=== PATIENT | male | born 1990 | race Caucasian/White ===

== ENCOUNTER 2022-10-15 19:58 | Emergency (ER) | payer OTHER ==
[2022-10-15 20:12] VITALS: BP 162/88; PULSE 115; RESP 20; TEMP 98.3
[2022-10-15] MEDS ORDERED: SODIUM CHLORIDE 0.9% 1,000 ML IV STA (20:23)
[2022-10-15] MEDS ORDERED: LORazepam 2 MG/ML INJ IV STA (20:30)
--- NOTE | 2022-10-15 20:33 | ED ---
Dizziness HPI - General Chief Complaint: Dizziness Stated Complaint: Dizziness Time Seen by Provider: 10/15/22 20:15 Source: patient Mode of arrival: ambulatory Limitations: no limitations - History of Present Illness Initial Comments: Patient is a 31-year-old male presenting with chief complaint of near syncopal episode. Patient states that he was upstairs visiting his twins in the nursery began to feel very dizzy, his states that he became very pale and had to rest against a window. Symptoms lasted for about a minute or 2. No chest pain or difficulty breathing. No vomiting or abdominal pain. No headache or vision or hearing changes. No fevers or chills. No palpitations or weakness. At this time patient is asymptomatic. - Related Data Home Medications Medication Instructions Recorded Confirmed Calcium Carbonate [Tums] 1,000 mg PO TID PRN 10/15/22 10/15/22 Allergies Allergy/AdvReac Type Severity Reaction Status Date / Time No Known Allergies Allergy Verified 10/15/22 21:12 Review of Systems ROS Statement: Those systems with pertinent positive or pertinent negative responses have been documented in the HPI. ROS Other: All systems not noted in ROS Statement are negative. Past Medical History Past Medical History: No Reported History, GERD/Reflux History of Any Multi-Drug Resistant Organisms: None Reported Additional Past Surgical History / Comment(s): spinal transfusion Past Psychological History: No Psychological Hx Reported Smoking Status: Never smoker Past Alcohol Use History: Occasional Past Drug Use History: None Reported General Exam Limitations: no limitations General appearance: alert, in no apparent distress Head exam: Present: atraumatic, normocephalic, normal inspection Eye exam: Present: normal appearance, EOMI. Absent: periorbital swelling, periorbital tenderness Neck exam: Present: normal inspection, full ROM Respiratory exam: Present: normal lung sounds bilaterally. Absent: respiratory distress, wheezes, rales, rhonchi, stridor Cardiovascular Exam: Present: regular rate, normal rhythm, normal heart sounds. Absent: systolic murmur, diastolic murmur, rubs, gallop, clicks Neurological exam: Present: alert, oriented X3, CN II-XII intact Expanded Patient oriented to: Present: person, place, time Speech: Present: fluid speech Eye Response: (4) open spontaneously Motor Response: (6) obeys commands Verbal Response: (5) oriented [place] Total: 15 Psychiatric exam: Present: normal affect, normal mood Skin exam: Present: warm, dry, intact, normal color. Absent: rash Course Vital Signs 10/15/22 20:06 Temperature 98.3 F Pulse Rate 115 H Respiratory 20 Rate Blood Pressure 162/88 O2 Sat by Pulse 99 Oximetry EKG Findings - EKG Comments: EKG Findings:: Sinus tachycardia ventricular rate 109. NE interval 135. QRS 113. QT 326. QTC 390. Medical Decision Making - Medical Decision Making Was pt. sent in by a medical professional or institution (, PA, [facility]MH SPECIALIST, urgent care, hospital, or penitentiary...) When possible be specific @ -No Did you speak to anyone other than the patient for history (EMS, parent, family, police, friend...)? What history was obtained from this source @ - Did you review nursing and triage notes (agree or disagree)? Why? @ -I reviewed and agree with nursing and triage notes Were old charts reviewed (outside hosp., previous admission, EMS record, old EKG, old radiological studies, urgent care reports/EKG's, penitentiary records)? Report findings @ -No old charts were reviewed Differential Diagnosis (chest pain, altered mental status, abdominal pain women, abdominal pain men, vaginal bleeding, weakness, fever, dyspnea, syncope, headache, dizziness, GI bleed, back pain, seizure, CVA, palpatations, mental health, musculoskeletal)? @ -MDM Differential Syncope: Valvular disease, hypertrophic cardiomyopathy, pulmonary embolism, tamponade, tachycardia, bradycardia, DE, hypovolemia, hemorrhage, dissection, anemia, intracranial hemorrhage, seizure, hypoglycemia, carbon monoxide poisoning this is not meant to be an all-inclusive list. EKG interpreted by me (3pts min.). @ -As above X-rays interpreted by me (1pt min.). @ -Chest x-ray shows no acute process CT interpreted by me (1pt min.). @ -None done U/S interpreted by me (1pt. min.). @ -None done What testing was considered but not performed or refused? (CT, X-rays, U/S, labs)? Why? @ -None What meds were considered but not given or refused? Why? @ -None Did you discuss the management of the patient with other professionals (pro fessionals i.e. , PA, [facility] SPECIALIST, lab, RT, psych nurse, social sciences research scientist, non profit director, teacher, chemistry technical officer, piano case and bench assembler)? Give summary @ -No Was smoking cessation discussed for >3mins.? @ -No Was critical care preformed (if so, how long)? @ -No Were there social determinants of health that impacted care today? How? (Homelessness, low income, unemployed, alcoholism, drug addiction, transporta tion, low edu. Level, literacy, decrease access to med. care, snf, rehab)? @ -No Was there de-escalation of care discussed even if they declined (Discuss DNR or withdrawal of care, Hospice)? DNR status @ -No What co-morbidities impacted this encounter? (DM, HTN, Smoking, COPD, CAD, Cancer, CVA, ARF, Chemo, Hep., AIDS, mental health diagnosis, sleep apnea, morbid obesity)? @ -None Was patient admitted / discharged? Hospital course, mention meds given and route, prescriptions, significant lab abnormalities, going to OR and other pertinent info. @ -Patient is a 31-year-old male presenting with chief complaint of near syncopal episode and dizziness. At time of examination patient states his symptoms have resolved and he is asymptomatic. Lab work is essentially unremarkable. Chest x-ray shows no acute process. EKG shows no acute process. Patient is educated on these findings. I encouraged the patient to follow up with cardiology as he may require a Holter monitor. Follow-up with PCP. Report back to ER with any new or worsening symptoms. Discussed return parameters and answered all questions. Patient conveyed verbal understanding and agreed to the plan. I discussed this case in detail with my attending Dr. Smith Undiagnosed new problem with uncertain prognosis? @ -No Drug Therapy requiring intensive monitoring for toxicity (Heparin, Nitro, Insulin, Cardizem)? @ -No Were any procedures done? @ -No Diagnosis/symptom? @ -Vasovagal near syncope Acute, or Chronic, or Acute on Chronic? @ -Acute Uncomplicated (without systemic symptoms) or Complicated (systemic symptoms)? @ -Uncomplicated Side effects of treatment? @ -No Exacerbation, Progression, or Severe Exacerbation? @ -No Poses a threat to life or bodily function? How? (Chest pain, [place], [place], pneumonia, PE, COPD, DKA, ARF, appy, cholecystitis, CVA, Diverticulitis, Homicidal, Suicidal, threat to staff... and all critical care pts) @ -No - Lab Data Result diagrams: 10/15/22 20:23 10/15/22 20: Lab Results 10/15/22 10/15/22 10/15/22 Range/Units 20:23 20:23 20: WBC 11.0 H (3.8-10.6) k/uL RBC 5.17 (4.30-5.90) m/uL Hgb 14.9 (13.0-17.5) gm/dL Hct 44.9 (39.0-53.0) % MCV 86.8 (80.0-100.0) fL MCH 28.9 (25.0-35.0) pg MCHC 33.3 (31.0-37.0) g/dL RDW 13.2 (11.5-15.5) % Plt Count 261 (150-450) k/uL MPV 7.1 Neutrophils % 70 % Lymphocytes % 22 % Monocytes % 4 % Eosinophils % 2 % Basophils % 0 % Neutrophils # 7.7 (1.3-7.7) k/uL Lymphocytes # 2.4 (1.0-4.8) k/uL Monocytes # 0.5 (0-1.0) k/uL Eosinophils # 0.2 (0-0.7) k/uL Basophils # 0.0 (0-0.2) k/uL Sodium 140 (137-145) mmol/L Potassium 4.2 (3.5-5.1) mmol/L Chloride 105 (98-107) mmol/L Carbon Dioxide 27 (22-30) mmol/L Anion Gap 8 mmol/L BUN 16 (9-20) mg/dL Creatinine 0.80 (0.66-1.25) mg/dL Est GFR (CKD-EPI)AfAm >90 (>60 ml/min/1.73 sqM) Est GFR (CKD-EPI)NonAf >90 (>60 ml/min/1.73 sqM) Glucose 157 H (74-99) mg/dL Plasma Lactic Acid [place] 1.5 (0.7-2.0) mmol/L Calcium 8.9 (8.4-10.2) mg/dL Total Bilirubin 0.6 (0.2-1.3) mg/dL AST 30 (17-59) U/L ALT 40 (4-49) U/L Alkaline Phosphatase 61 (38-126) U/L Total Protein 7.2 (6.3-8.2) g/dL Albumin 4.4 (3.5-5.0) g/dL Urine Color Urine Appearance (Clear) Urine pH (5.0-8.0) Ur Specific [place] (1.001-1.035) Urine Protein (Negative) Urine Glucose (UA) (Negative) Urine Ketones (Negative) Urine Blood (Negative) Urine Nitrite (Negative) Urine Bilirubin (Negative) Urine Urobilinogen (<2.0) mg/dL Ur Leukocyte Esterase (Negative) 10/15/22 Range/Units 21:01 WBC (3.8-10.6) k/uL RBC (4.30-5.90) m/uL Hgb (13.0-17.5) gm/dL Hct (39.0-53.0) % MCV (80.0-100.0) fL MCH (25.0-35.0) pg MCHC (31.0-37.0) g/dL RDW (11.5-15.5) % Plt Count (150-450) k/uL MPV Neutrophils % % Lymphocytes % % Monocytes % % Eosinophils % % Basophils % % Neutrophils # (1.3-7.7) k/uL Lymphocytes # (1.0-4.8) k/uL Monocytes # (0-1.0) k/uL Eosinophils # (0-0.7) k/uL Basophils # (0-0.2) k/uL Sodium (137-145) mmol/L Potassium (3.5-5.1) mmol/L Chloride (98-107) mmol/L Carbon Dioxide (22-30) mmol/L Anion Gap mmol/L BUN (9-20) mg/dL Creatinine (0.66-1.25) mg/dL Est GFR (CKD-EPI)AfAm (>60 ml/min/1.73 sqM) Est GFR (CKD-EPI)NonAf (>60 ml/min/1.73 sqM) Glucose (74-99) mg/dL Plasma Lactic Acid [place] (0.7-2.0) mmol/L Calcium (8.4-10.2) mg/dL Total Bilirubin (0.2-1.3) mg/dL AST (17-59) U/L ALT (4-49) U/L Alkaline Phosphatase (38-126) U/L Total Protein (6.3-8.2) g/dL Albumin (3.5-5.0) g/dL Urine Color Yellow Urine Appearance Clear (Clear) Urine pH 6.0 (5.0-8.0) Ur Specific [place] 1.024 (1.001-1.035) Urine Protein Trace H (Negative) Urine Glucose (UA) Negative (Negative) Urine Ketones Negative (Negative) Urine Blood Negative (Negative) Urine Nitrite Negative (Negative) Urine Bilirubin Negative (Negative) Urine Urobilinogen 2.0 (<2.0) mg/dL Ur Leukocyte Esterase Negative (Negative) Disposition Clinical Impression: Vasovagal near syncope, Dehydration Disposition: HOME SELF-CARE Condition: Good Instructions (If sedation given, give patient instructions): Syncope (ED), Dizziness (ED) Additional Instructions: Follow-up with PCP and cardiology. Inquire about Holter monitor. Report back to ER with any new or worsening symptoms. Stay well-hydrated. Is patient prescribed a controlled substance at d/c from ED?: No Referrals: Eric Jones MD [STAFF PHYSICIAN] - 1-[address] [facility] [NON-STAFF] - 1-2 days Time of Disposition: 21:26
[2022-10-15 20:46] LABS: Basophils % (A) 0 %; Eosinophils # (A) 0.2 k/uL (0-0.7); Eosinophils % (A) 2 %; HCT 44.9 % (39.0-53.0); HGB 14.9 gm/dL (13.0-17.5); Lymphocytes # (A) 2.4 k/uL (1.0-4.8); Lymphocytes % (A) 22 %; MCH 28.9 pg (25.0-35.0); MCHC 33.3 g/dL (31.0-37.0); MCV 86.8 fL (80.0-100.0); Mean Platelet Volume 7.1; Monocytes # (A) 0.5 k/uL (0-1.0); Monocytes % (A) 4 %; Neutrophils # (A) 7.7 k/uL (1.3-7.7); Neutrophils % (A) 70 %; Platelet Count 261 k/uL (150-450); RBC 5.17 m/uL (4.30-5.90); RDW 13.2 % (11.5-15.5)
--- NOTE | 2022-10-15 20:55 | XR ---
EXAMINATION TYPE: XR chest 2V DATE OF EXAM: 10/15/2022 COMPARISON: NONE TECHNIQUE: PA and lateral views submitted. HISTORY: Weakness FINDINGS: The lungs are clear and there is no pneumothorax, pleural effusion, or focal pneumonia. Heart size normal and no overt failure. Osseous structures demonstrate postsurgical change vertebral column. IMP RESSION: 1. No acute process.
[2022-10-15 20:56] LABS: ALT 40 U/L (4-49); AST 30 U/L (17-59); African American GFR (CKD) >90 (>60 ml/min/1.73 sqM); Albumin 4.4 g/dL (3.5-5.0); Alkaline Phosphatase 61 U/L (38-126); Anion Gap 8 mmol/L; Blood Urea Nitrogen 16 mg/dL (9-20); Calcium 8.9 mg/dL (8.4-10.2); Carbon Dioxide 27 mmol/L (22-30); Chloride 105 mmol/L (98-107); Glucose 157 mg/dL (74-99); Non-African American GFR(CKD) >90 (>60 ml/min/1.73 sqM); Potassium 4.2 mmol/L (3.5-5.1); Sodium 140 mmol/L (137-145); Total Bilirubin 0.6 mg/dL (0.2-1.3); Total Protein 7.2 g/dL (6.3-8.2)
[2022-10-15 21:14] LABS: Appearance,Urine Clear (Clear); Bilirubin,Urine Negative (Negative); Blood,Urine Negative (Negative); Color,Urine Yellow; Glucose,Urine (UA) Negative (Negative); Ketones,Urine Negative (Negative); Leukocyte Esterase,Urine Negative (Negative); Nitrite,Urine Negative (Negative); Protein,Urine Trace (Negative); Specific Gravity,Urine 1.024 (1.001-1.035)
== END 2022-10-15 21:44 | disposition home or self-care (01) ==
LOC: EC 19:58
DX: R55 Syncope and collapse (principal); E86.0 Dehydration
CPT/HCPCS: 36415; 93005; 80053; 83605; 85025; 81003; 71046; 99284; 96374; 96361; J2060

== ENCOUNTER 2022-10-16 16:47 | Emergency (ER) | payer OTHER ==
[2022-10-16 17:04] VITALS: TEMP 98.5
[2022-10-16] MEDS ORDERED: ONDANSETRON 4 MG/2 ML VIAL IVP STA (17:13)
[2022-10-16] MEDS ORDERED: SODIUM CHLORIDE 0.9% 1,000 ML IV STA (17:13)
[2022-10-16] MEDS ORDERED: FAMOTIDINE 20 MG/2 ML VIAL IV STA (17:23)
[2022-10-16] MEDS ORDERED: PANTOPRAZOLE 40 MG/10 ML VIAL IVP STA (17:24)
[2022-10-16 17:35] LABS: Basophils % (A) 0 %; Eosinophils # (A) 0.2 k/uL (0-0.7); Eosinophils % (A) 2 %; HGB 14.9 gm/dL (13.0-17.5); Lymphocytes # (A) 1.9 k/uL (1.0-4.8); Lymphocytes % (A) 16 %; MCH 28.5 pg (25.0-35.0); MCV 86.3 fL (80.0-100.0); Mean Platelet Volume 7.4; Monocytes # (A) 0.6 k/uL (0-1.0); Monocytes % (A) 5 %; Neutrophils # (A) 9.1 k/uL (1.3-7.7); Neutrophils % (A) 76 %; Platelet Count 237 k/uL (150-450); RBC 5.22 m/uL (4.30-5.90); RDW 13.3 % (11.5-15.5); WBC 11.9 k/uL (3.8-10.6)
--- NOTE | 2022-10-16 17:45 | ED ---
Nausea/Vomiting/Diarrhea HPI - General Chief complaint: Nausea/Vomiting/Diarrhea Stated complaint: Vomiting,nausea Time Seen by Provider: 10/16/22 17:11 Source: patient Mode of arrival: ambulatory Limitations: no limitations - History of Present Illness Initial comments: Patient is a 31-year-old male presents to the emergency department for vomiting. Patient states he has a a lot of acid reflux today which he states resulted in one episode of vomiting. Patient feels burning sensation in his upper middle abdomen typical of his GERD symptoms. He denies any back pain, chest pain, shortness of breath. No fever, chills, cold-like symptoms, headache. Patient was evaluated in our emergency department yesterday for near syncopal episode. Patient has history of vasovagal syncope.He has not had any syncopal episodes since discharge. No dizziness, chest pain, SOB. He has a twins currently in the NICU. Patient states he has felt anxious and "fuzzy" lately which family expresses concern with. Denies any recent falls and head trauma. No focal weakness or deficit. - Related Data Home Medications Medication Instructions Recorded Confirmed Calcium Carbonate [Tums] 1,000 mg PO TID PRN 10/15/22 10/16/22 Previous Rx's Medication Instructions Recorded Famotidine [Pepcid] 20 mg PO BID #28 tablet 10/16/22 Ibuprofen [Motrin] 800 mg PO Q8HR PRN #30 tab 10/16/22 Pantoprazole Sodium [Protonix] 40 mg PO DAILY #14 tab 10/16/22 hydrOXYzine HCL 25 mg PO Q8HR PRN #9 tab 10/16/22 Allergies Allergy/AdvReac Type Severity Reaction Status Date / Time No Known Allergies Allergy Verified 10/16/22 17:46 Review of Systems ROS Statement: Those systems with pertinent positive or pertinent negative responses have been documented in the HPI. ROS Other: All systems not noted in ROS Statement are negative. Past Medical History Past Medical History: No Reported History, GERD/Reflux History of Any Multi-Drug Resistant Organisms: None Reported Additional Past Surgical History / Comment(s): spinal transfusion Past Psychological History: No Psychological Hx Reported Smoking Status: Never smoker Past Alcohol Use History: Occasional Past Drug Use History: None Reported General Exam Limitations: no limitations General appearance: alert Head exam: Present: atraumatic, normocephalic, normal inspection Eye exam: Present: normal appearance, PERRL, EOMI. Absent: scleral icterus, conjunctival injection, periorbital swelling Respiratory exam: Present: normal lung sounds bilaterally. Absent: respiratory distress, wheezes, rales, rhonchi, stridor Cardiovascular Exam: Present: regular rate, normal rhythm, normal heart sounds. Absent: systolic murmur, diastolic murmur, rubs, gallop, clicks GI/Abdominal exam: Present: soft, normal bowel sounds. Absent: distended, tenderness, guarding, rebound, rigid Extremities exam: Present: normal inspection, full ROM, normal capillary refill Neurological exam: Present: alert, oriented X3, CN II-XII intact Psychiatric exam: Present: normal affect, normal mood Skin exam: Present: warm, dry, intact, normal color. Absent: rash Course Vital Signs 10/16/22 10/16/22 17:02 18:42 Temperature 98.5 F Pulse Rate 97 77 Respiratory 20 18 Rate Blood Pressure 136/84 153/95 O2 Sat by Pulse 99 96 Oximetry Medical Decision Making - Medical Decision Making EKG taken at 17:42, interpreted by me Sinus rhythm. Normal access Ventricular rate 87, DE interval 145, QRS duration 105, QTC 396 Was pt. sent in by a medical professional or institution (ANAHI Reeves, WINDOW COVERING SALES CONSULTANT, urgent care, hospital, or residential...) When possible be specific @ -No Did you speak to anyone other than the patient for history (EMS, parent, family, police, friend...)? What history was obtained from this source @ -Family, see HPI Did you review nursing and triage notes (agree or disagree)? Why? @ -I reviewed and agree with nursing and triage notes Were old charts reviewed (outside hosp., previous admission, EMS record, old EKG, old radiological studies, urgent care reports/EKG's, residential records)? Report findings @ -No old charts were reviewed Differential Diagnosis (chest pain, altered mental status, abdominal pain women, abdominal pain men, vaginal bleeding, weakness, fever, dyspnea, syncope, headache, dizziness, GI bleed, back pain, seizure, CVA, palpatations, mental health)? @ -Differential Abdominal Pain Men: Appendicitis, cholecystitis, diverticulosis, ischemic bowel, pancreatitis, hepatitis, UTI, gastroenteritis, AAA, incarcerated hernia, bowel obstruction, constipation, inflammatory bowel, hepatitis, peptic ulcer disease, splenic infar ction, perforated viscus, testicular torsion, this is not meant to be an all- inclusive list EKG interpreted by me (3pts min.). @ -As above X-rays interpreted by me (1pt min.). @ -None done CT interpreted by me (1pt min.). @ -None done U/S interpreted by me (1pt. min.). @ -None done What testing was considered but not performed or refused? (CT, X-rays, U/S, labs)? Why? @ -None What meds were considered but not given or refused? Why? @ -None Did you discuss the management of the patient with other professionals (professionals i.e. , PA, WINDOW COVERING SALES CONSULTANT, lab, RT, psych nurse, psychosocial rehabilitation counselor, carpet layer helper, teacher, airfield services officer, case monitor)? Give summary @ -No Was smoking cessation discussed for >3mins.? @ -No Was critical care preformed (if so, how long)? @ -No Were there social determinants of health that impacted care today? How? (Homelessness, low income, unemployed, alcoholism, drug addiction, transportation, low edu. Level, literacy, decrease access to med. care, assisted, rehab)? @ -No Was there de-escalation of care discussed even if they declined (Discuss DNR or withdrawal of care, Hospice)? DNR status @ -No What co-morbidities impacted this encounter? (DM, HTN, Smoking, COPD, CAD, Cancer, CVA, ARF, Chemo, Hep., AIDS, mental health diagnosis, sleep apnea, morbid obesity)? @ -None Was patient admitted / discharged? Hospital course, mention meds given and route, prescriptions, significant lab abnormalities, going to OR and other pertinent info. @ -Patient presenting for acid reflux and episode of vomiting. Patient well- appearing. Afebrile. Abdomen is soft and nontender. Laboratory studies obtained. There is mild leukocytosis of 11.9. Lipase is within normal limits. Acid reflux improved after treatment in the emergency department. Patient did not have any further episodes of vomiting. Family expresses concern that patient has not been himself lately. We discussed the importance of establishing primary care. Patient is not suicidal he is in stable medical condition for discharge. Patient will be discharged with GERD medication and hydroxyzine for anxiety. Undiagnosed new problem with uncertain prognosis? @ -No Drug Therapy requiring intensive monitoring for toxicity (Heparin, Nitro, Insulin, Cardizem)? @ -No Were any procedures done? @ -No Diagnosis/symptom? @ -GERD, vomiting, anxiety Acute, or Chronic, or Acute on Chronic? @ -acute Uncomplicated (without systemic symptoms) or Complicated (systemic symptoms)? @ -uncomplicated Side effects of treatment? @ -No Exacerbation, Progression, or Severe Exacerbation? @ -No Poses a threat to life or bodily function? How? (Chest pain, [place], [place], pneumonia, PE, COPD, DKA, ARF, appy, cholecystitis, CVA, Diverticulitis, Homicidal, Suicidal, threat to staff... and all critical care pts) @ -No Dr. Smith is my attending - Lab Data Result diagrams: 10/16/22 17:18 10/16/22 17:18 Lab Results 10/16/22 10/16/22 10/16/22 Range/Units 17:18 17:18 17:18 WBC 11.9 H (3.8-10.6) k/uL RBC 5.22 (4.30-5.90) m/uL Hgb 14.9 (13.0-17.5) gm/dL Hct 45.0 (39.0-53.0) % MCV 86.3 (80.0-100.0) fL MCH 28.5 (25.0-35.0) pg MCHC 33.0 (31.0-37.0) g/dL RDW 13.3 (11.5-15.5) % Plt Count 237 (150-450) k/uL MPV 7.4 Neutrophils % 76 % Lymphocytes % 16 % Monocytes % 5 % Eosinophils % 2 % Basophils % 0 % Neutrophils # 9.1 H (1.3-7.7) k/uL Lymphocytes # 1.9 (1.0-4.8) k/uL Monocytes # 0.6 (0-1.0) k/uL Eosinophils # 0.2 (0-0.7) k/uL Basophils # 0.0 (0-0.2) k/uL Sodium 139 (137-145) mmol/L Potassium 4.6 (3.5-5.1) mmol/L Chloride 106 (98-107) mmol/L Carbon Dioxide 24 (22-30) mmol/L Anion Gap 9 mmol/L BUN 11 (9-20) mg/dL Creatinine 0.51 L (0.66-1.25) mg/dL Est GFR (CKD-EPI)AfAm >90 (>60 ml/min/1.73 sqM) Est GFR (CKD-EPI)NonAf >90 (>60 ml/min/1.73 sqM) Glucose 132 H (74-99) mg/dL Calcium 8.6 (8.4-10.2) mg/dL Total Bilirubin 1.0 (0.2-1.3) mg/dL AST 36 (17-59) U/L ALT 41 (4-49) U/L Alkaline Phosphatase 52 (38-126) U/L Total Protein 7.5 (6.3-8.2) g/dL Albumin 4.4 (3.5-5.0) g/dL Lipase 65 (23-300) U/L Urine Color Yellow Urine Appearance Clear (Clear) Urine pH 7.0 (5.0-8.0) Ur Specific [place] 1.017 (1.001-1.035) Urine Protein Negative (Negative) Urine Glucose (UA) Negative (Negative) Urine Ketones Negative (Negative) Urine Blood Negative (Negative) Urine Nitrite Negative (Negative) Urine Bilirubin Negative (Negative) Urine Urobilinogen <2.0 (<2.0) mg/dL Ur Leukocyte Esterase Negative (Negative) Disposition Clinical Impression: Nausea and vomiting, Anxiety Disposition: HOME SELF-CARE Condition: Good Instructions (If sedation given, give patient instructions): GERD (Gastroesophageal Reflux Disease) (ED) Additional Instructions: Take medication as directed. Do not drink alcohol or operate machinery while taking hydroxyzine as it can cause drowsiness. It is important to establish with a primary care provider. Return to the emergency department if you experience new, concerning, or worsening symptoms. Prescriptions: hydrOXYzine HCL 25 mg PO Q8HR PRN #9 tab PRN Reason: Anxiety Ibuprofen [Motrin] 800 mg PO Q8HR PRN #30 tab PRN Reason: Pain Famotidine [Pepcid] 20 mg PO BID #28 tablet Pantoprazole Sodium [Protonix] 40 mg PO DAILY #14 tab Is patient prescribed a controlled substance at d/c from ED?: No Referrals: None,Stated [Primary Care Provider] - 1-2 days Song Stokes MD [STAFF PHYSICIAN] - 1-2 days Naresh Davis DO [Doctor of Osteopathic Medicine] - 1-2 days Song Harrington MD [STAFF PHYSICIAN] - 1-2 days Frank Tavera MD [STAFF PHYSICIAN] - 1-2 days
[2022-10-16 17:51] LABS: ALT 41 U/L (4-49); African American GFR (CKD) >90 (>60 ml/min/1.73 sqM); Anion Gap 9 mmol/L; Blood Urea Nitrogen 11 mg/dL (9-20); Calcium 8.6 mg/dL (8.4-10.2); Carbon Dioxide 24 mmol/L (22-30); Chloride 106 mmol/L (98-107); Glucose 132 mg/dL (74-99); Lipase 65 U/L (23-300); Non-African American GFR(CKD) >90 (>60 ml/min/1.73 sqM); Sodium 139 mmol/L (137-145)
[2022-10-16 18:16] LABS: AST 36 U/L (17-59); Albumin 4.4 g/dL (3.5-5.0); Alkaline Phosphatase 52 U/L (38-126); Potassium 4.6 mmol/L (3.5-5.1); Total Protein 7.5 g/dL (6.3-8.2)
[2022-10-16 18:27] LABS: Appearance,Urine Clear (Clear); Bilirubin,Urine Negative (Negative); Blood,Urine Negative (Negative); Color,Urine Yellow; Glucose,Urine (UA) Negative (Negative); Ketones,Urine Negative (Negative); Leukocyte Esterase,Urine Negative (Negative); Nitrite,Urine Negative (Negative); Protein,Urine Negative (Negative); Specific Gravity,Urine 1.017 (1.001-1.035); Urobilinogen,Urine <2.0 mg/dL (<2.0)
[2022-10-16 18:45] VITALS: BP 153/95; PULSE 77; RESP 18
[2022-10-16] MEDS ORDERED: KETOROLAC 15 MG/ML 1 ML VIAL IVP STA (18:58)
== END 2022-10-16 19:58 | disposition home or self-care (01) ==
LOC: EC 16:47
DX: R11.2 Nausea with vomiting, unspecified (principal); F41.9 Anxiety disorder, unspecified
CPT/HCPCS: 36415; 93005; 80053; 83690; 85025; 81003; 99284; 96374; 96375 ×3; 96361; J2405; J1885; C9113

== ENCOUNTER 2022-12-09 07:56 | Day surgery (SDC) | payer OTHER ==
[2022-12-07 15:44] VITALS: BMI 41.8
[~2022-12-09 07:56] MED LIST: LACTATED RINGERS 1,000 ML IV SCH
[2022-12-09 08:20] VITALS: TEMP 98.3
[2022-12-09] MEDS ORDERED: MIDAZOLAM 2 MG/2 ML VIAL ONE (08:44)
[2022-12-09] MEDS ORDERED: LIDOCAINE 2% INJ 20 MG/ML (2 ML VIAL) ONE (08:44)
[2022-12-09] MEDS ORDERED: PROPOFOL 10 MG/ML 20 ML VIAL IV ONE (08:44)
[2022-12-09] MEDS ORDERED: fentaNYL (PF) 50 MCG/ML 2 ML AMP ONE (08:44)
--- NOTE | 2022-12-09 08:49 | P.GSHP ---
History of Present Illness H&P Date: 12/09/22 Chief Complaint: GERD This a 32-year-old male presents today for EGD. He's had issues with GERD. His BMI is 47. Past Medical History Past Medical History: GERD/Reflux, Hypertension, Sleep Apnea/CPAP/BIPAP History of Any Multi-Drug Resistant Organisms: None Reported Additional Past Surgical History / Comment(s): spinal surgery to correct scoliosis 2002, EGD Past Anesthesia/Blood Transfusion Reactions: No Reported Reaction Smoking Status: Current every day smoker, Vaper Medications and Allergies Home Medications Medication Instructions Recorded Confirmed Type Calcium Carbonate [Tums] 1,000 mg PO TID PRN 10/15/22 12/07/22 History Famotidine [Pepcid] 20 mg PO DAILY 12/07/22 12/07/22 History Loratadine [Claritin] 10 mg PO DAILY 12/07/22 12/07/22 History Meclizine [Antivert] 1 tab PO DAILY 12/07/22 12/07/22 History Omeprazole [PriLOSEC] 40 mg PO DAILY 12/07/22 12/07/22 History lisinopriL [Zestril] 20 mg PO DAILY 12/07/22 12/07/22 History Allergies Allergy/AdvReac Type Severity Reaction Status Date / Time No Known Allergies Allergy Verified 12/09/22 08:16 Surgical - Exam Vital Signs Temp Pulse Resp BP Pulse Ox 98.3 F 98 20 156/82 98 12/09/22 08:18 12/09/22 08:18 12/09/22 08:18 12/09/22 08:18 12/09/22 08:18 - General well developed, well nourished, no distress - Eyes PERRL - ENT normal pinna - Neck no masses - Respiratory normal expansion - Cardiovascular Rhythm: regular - Abdomen Abdomen: soft, non tender Assessment and Plan Assessment: GERD. We'll perform EGD.
--- NOTE | 2022-12-09 08:58 | P.OP ---
Date of Procedure: 12/09/22 Preoperative Diagnosis: GERD Postoperative Diagnosis: Antral gastritis No evidence of hiatal hernia Procedure(s) Performed: EGD Anesthesia: MAC Surgeon: Daniel Tran Pathology: other (Antrum) Condition: stable Disposition: PACU Description of Procedure: Patient's placed on the endoscopy table in the lateral position. He received IV sedation. The gastroscope placed oropharynx passed in the esophagus into the stomach. Scope was then placed through the pylorus. The first and second portion of the duodenum appeared normal. Scope was then brought back the antrum was mildly inflamed. The scope was then retroflexed remainder stomach appeared normal. The GE junction was at 40 cm per the distal esophagus appeared normal. The proximal esophagus appeared normal. Scope withdrawn for patient.
[2022-12-09] MEDS ORDERED: IV FLUID CONTINUATION 900 ML IV ONE (09:01)
[2022-12-09 09:07] VITALS: RESP 16
[2022-12-09 09:15] VITALS: BP 123/70; PULSE 63
== END 2022-12-09 09:40 | disposition home or self-care (01) ==
LOC: ORWHC2ENDO 07:56
PROVIDERS: ATTEND Surgery
DX: K29.50 Unspecified chronic gastritis without bleeding (principal); K21.9 Gastro-esophageal reflux disease without esophagitis; I10 Essential (primary) hypertension; G47.33 Obstructive sleep apnea (adult) (pediatric); F17.290 Nicotine dependence, other tobacco product, uncomplicated; Z98.890 Other specified postprocedural states; Z79.899 Other long term (current) drug therapy
CPT/HCPCS: 88305; 43239; J2250; J3010; J2704; J2001

== ENCOUNTER → 2022-12-24 | Outpatient (CLI) | payer OTHER ==
--- NOTE | 2022-12-24 09:42 | NM ---
Nuclear medicine hepatobiliary scan. HISTORY: Pain. DOSAGE: The patient received 8 0z Ensure plus and 4.5 mCi of Technetium 99m Choletec. FINDINGS: There is normal hepatic extraction. The gallbladder is seen by 40 minutes. There is bilia ry to bowel clearance by 10 minutes. Ejection fraction is 21%. IMPRESSION: 1. Abnormal ejection fraction correlate for biliary dyskinesia.
== END | disposition home or self-care (01) ==
LOC: RADNMMAIN 06:52
PROVIDERS: ATTEND Surgery
DX: K30 Functional dyspepsia (principal)
CPT/HCPCS: 78227; A9537; J2805

== ENCOUNTER → 2023-01-20 | Outpatient (CLI) | payer OTHER ==
--- NOTE | 2023-01-20 12:45 | FL ---
EXAMINATION TYPE: FL barium swallow DATE OF EXAM: 01/20/2023 CLINICAL INDICATION: 32-year-old male K21.9 COMPARISON: None Total Fluoroscopy Time: None DOSE AREA PRODUCT (DAP) UGY*M,MGY*CM: 766.37 42 images obtained. FINDINGS: The swallowing mechanism is normal and hypopharyngeal anatomy is preserved. The cervical and thoracic portions have a normal course and caliber and normal motility. The mucosa is normal and no persistent filling defect is encountered. There is a tiny sliding hiatal hernia which is only seen once when the patient is in the prone MORRELL po sition. Unable to elicit any gastroesophageal reflux during the course of the exam. IMPRESSION: 1. A tiny sliding hiatal hernia seen only once when the patient is in the prone MORRELL position. No annetta roesophageal reflux seen during the course of the exam. 2. Otherwise, unremarkable esophagram.
== END | disposition home or self-care (01) ==
LOC: RADUSWWP 09:59
PROVIDERS: ATTEND Surgery
DX: K44.9 Diaphragmatic hernia without obstruction or gangrene (principal); K21.9 Gastro-esophageal reflux disease without esophagitis
CPT/HCPCS: 74220

== ENCOUNTER 2023-01-31 09:57 | Observation (INO) | payer OTHER ==
[2023-01-31] MEDS ORDERED: IOPAMIDOL CONTRAST (ORAL USE) VIAL PO PRN (10:00)
--- NOTE | 2023-01-31 10:44 | ED ---
General Adult HPI - General Chief complaint: Nausea/Vomiting/Diarrhea Stated complaint: vomiting Time Seen by Provider: 01/31/23 09:59 Source: patient Mode of arrival: wheelchair - History of Present Illness Initial comments: Dictation was produced using Beep dictation software. please excuse any grammatical, word or spelling errors. Chief Complaint: 32-year-old male presents emergency Department with nausea History of Present Illness: 32-year-old male sent in by general surgeon for computed tomography scan of abdomen and pelvis with oral contrast. Patient has chronic nausea. He's been having nausea for the last 4 months. Patient also had a abnormal HIDA scan suggested patient suffered from biliary dyskinesia. Patient was at his general surgeon is office today and told to come to the emergency department for CT of the abdomen pelvis with oral contrast. She symptoms have been persistent. He denies any progression of his symptoms. The ROS documented in this emergency department record has been reviewed and confirmed by me. Those systems with pertinent positive or negative responses have been documented in the HPI. All other systems are other negative and/or noncontributory. - Related Data Home Medications Medication Instructions Recorded Confirmed Calcium Carbonate [Tums] 1,000 mg PO TID PRN 10/15/22 01/31/23 Meclizine [Antivert] 12.5 mg PO DAILY 12/07/22 01/31/23 lisinopriL [Zestril] 20 mg PO DAILY 12/07/22 01/31/23 Allergies Allergy/AdvReac Type Severity Reaction Status Date / Time No Known Allergies Allergy Verified 01/31/23 11:02 Review of Systems ROS Statement: Those systems with pertinent positive or pertinent negative responses have been documented in the HPI. ROS Other: All systems not noted in ROS Statement are negative. Past Medical History Past Medical History: GERD/Reflux, Hypertension, Sleep Apnea/CPAP/BIPAP History of Any Multi-Drug Resistant Organisms: None Reported Additional Past Surgical History / Comment(s): spinal surgery to correct scoliosis 2002, EGD Past Anesthesia/Blood Transfusion Reactions: No Reported Reaction Past Psychological History: No Psychological Hx Reported Smoking Status: Current every day smoker, Vaper Past Alcohol Use History: None Reported Past Drug Use History: None Reported General Exam - General Exam Comments Initial Comments: PHYSICAL EXAM: General Impression: Alert and oriented x3, not in acute distress HEENT: Normocephalic atraumatic, extra-ocular movements intact, pupils equal and reactive to light bilaterally, mucous membranes moist. Cardiovascular: Heart regular rate and rhythm Chest: Able to complete full sentences, no retractions, no tachypnea Abdomen: abdomen soft, non-tender, non-distended, no organomegaly Musculoskeletal: Pulses present and equal in all extremities, no peripheral edema Motor: no focal deficits noted Neurological: CN II-XII grossly intact, no focal motor or sensory deficits noted Skin: Intact with no visualized rashes Psych: Normal affect and mood Course Vital Signs 01/31/23 10:18 Temperature 98.6 F Pulse Rate 87 Respiratory 18 Rate Blood Pressure 166/91 O2 Sat by Pulse 97 Oximetry Medical Decision Making - Medical Decision Making Was pt. sent in by a medical professional or institution (, PA, MOLD CLOSER HELPER, urgent care, hospital, or custodial...) When possible be specific @ -No Did you speak to anyone other than the patient for history (EMS, parent, family, police, friend...)? What history was obtained from this source @ -No Did you review nursing and triage notes (agree or disagree)? Why? @ -I reviewed and agree with nursing and triage notes Were old charts reviewed (outside hosp., previous admission, EMS record, old EKG, old radiological studies, urgent care reports/EKG's, custodial records)? Report findings @ -No old charts were reviewed Differential Diagnosis (chest pain, altered mental status, abdominal pain women, abdominal pain men, vaginal bleeding, musculoskeletal, weakness, fever, dyspnea, syncope, headache, dizziness, GI bleed, back pain, seizure, CVA, palpatations, mental health)? @ -Differential Abdominal Pain Men: Appendicitis, cholecystitis, diverticulosis, ischemic bowel, pancreatitis, hepatitis, UTI, gastroenteritis, AAA, incarcerated hernia, bowel obstruction, constipation, inflammatory bowel, hepatitis, peptic ulcer disease, splenic infarction, perforated viscus, testicular torsion, this is not meant to be an all-inclusive list EKG interpreted by me (3pts min.). @ -None done X-rays interpreted by me (1pt min.). @ -None done CT interpreted by me (1pt min.). @ -No acute process on CT abdomen and pelvis U/S interpreted by me (1pt. min.). @ -None done What testing was considered but not performed or refused? (CT, X-rays, U/S, labs)? Why? @ -None What meds were considered but not given or refused? Why? @ -None Did you discuss the management of the patient with other professionals (professionals i.e. , PA, MOLD CLOSER HELPER, lab, RT, psych nurse, social human services assistants, crystallizer operator, teacher, money position officer, director of casework department)? Give summary @ -Case is discussed with general surgeon, Dr. Tran requests patient had a CT of abdomen and pelvis with oral contrast and to be admitted Was smoking cessation discussed for >3mins.? @ -No Was critical care preformed (if so, how long)? @ -No Were there social determinants of health that impacted care today? How? (Homelessness, low income, unemployed, alcoholism, drug addiction, transportation, low edu. Level, literacy, decrease access to med. care, usp, rehab)? @ -No Was there de-escalation of care discussed even if they declined (Discuss DNR or withdrawal of care, Hospice)? DNR status @ -No What co-morbidities impacted this encounter? (DM, HTN, Smoking, COPD, CAD, Cancer, CVA, ARF, Chemo, Hep., AIDS, mental health diagnosis, sleep apnea, mo rbid obesity)? @ -None Was patient admitted / discharged? Hospital course, mention meds given and route, prescriptions, significant lab abnormalities, going to OR and other pertinent info. @ -32 Year-old male with chronic nausea presents to the ER per instruction by general surgeon for CT imaging. CT imaging is unremarkable. Labs are within acceptable limits. General surgeon request patient be admitted for further care. Undiagnosed new problem with uncertain prognosis? @ -No Drug Therapy requiring intensive monitoring for toxicity (Heparin, Nitro, Insulin, Cardizem)? @ -No Were any procedures done? @ -No Diagnosis/symptom? Acute, or Chronic, or Acute on Chronic? Uncomplicated (without systemic symptoms) or Complicated (systemic symptoms)? @ -1.Chronic nausea Side effects of treatment? @ -No Exacerbation, Progression, or Severe Exacerbation? @ -No Poses a threat to life or bodily function? How? (Chest pain, USA, GA, pneumonia, PE, COPD, DKA, ARF, appy, cholecystitis, CVA, Diverticulitis, Homicidal, Suicidal, threat to staff... and all critical care pts) @ -No - Lab Data Result diagrams: 01/31/23 10:35 01/31/23 10:35 Lab Results 01/31/23 01/31/23 Range/Units 10:35 10:35 WBC 10.7 H (3.8-10.6) k/uL RBC 5.43 (4.30-5.90) m/uL Hgb 15.7 (13.0-17.5) gm/dL Hct 47.2 (39.0-53.0) % MCV 87.0 (80.0-100.0) fL MCH 28.9 (25.0-35.0) pg MCHC 33.2 (31.0-37.0) g/dL RDW 13.5 (11.5-15.5) % Plt Count 260 (150-450) k/uL MPV 7.4 Neutrophils % 82 % Lymphocytes % 12 % Monocytes % 5 % Eosinophils % 1 % Basophils % 0 % Neutrophils # 8.8 H (1.3-7.7) k/uL Lymphocytes # 1.2 (1.0-4.8) k/uL Monocytes # 0.5 (0-1.0) k/uL Eosinophils # 0.1 (0-0.7) k/uL Basophils # 0.0 (0-0.2) k/uL Sodium 137 (137-145) mmol/L Potassium 4.2 (3.5-5.1) mmol/L Chloride 103 (98-107) mmol/L Carbon Dioxide 23 (22-30) mmol/L Anion Gap 11 mmol/L BUN 12 (9-20) mg/dL Creatinine 0.65 L (0.66-1.25) mg/dL Est GFR (CKD-EPI)AfAm >90 (>60 ml/min/1.73 sqM) Est GFR (CKD-EPI)NonAf >90 (>60 ml/min/1.73 sqM) Glucose 114 H (74-99) mg/dL Calcium 9.6 (8.4-10.2) mg/dL Magnesium 2.2 (1.6-2.3) mg/dL Total Bilirubin 1.2 (0.2-1.3) mg/dL AST 34 (17-59) U/L ALT 42 (4-49) U/L Alkaline Phosphatase 75 (38-126) U/L Total Protein 7.8 (6.3-8.2) g/dL Albumin 4.6 (3.5-5.0) g/dL Lipase 55 (23-300) U/L Disposition Clinical Impression: Nausea Disposition: ADMITTED IP TO THIS HOSP Condition: Fair Referrals: Ariana Durbin DO [Primary Care Provider] - 1-2 days Decision Time: 13:30
[2023-01-31 11:10] LABS: Basophils % (A) 0 %; Eosinophils # (A) 0.1 k/uL (0-0.7); Eosinophils % (A) 1 %; HCT 47.2 % (39.0-53.0); HGB 15.7 gm/dL (13.0-17.5); Lymphocytes # (A) 1.2 k/uL (1.0-4.8); Lymphocytes % (A) 12 %; MCH 28.9 pg (25.0-35.0); MCHC 33.2 g/dL (31.0-37.0); Mean Platelet Volume 7.4; Monocytes # (A) 0.5 k/uL (0-1.0); Monocytes % (A) 5 %; Neutrophils # (A) 8.8 k/uL (1.3-7.7); Neutrophils % (A) 82 %; Platelet Count 260 k/uL (150-450); RBC 5.43 m/uL (4.30-5.90); RDW 13.5 % (11.5-15.5); WBC 10.7 k/uL (3.8-10.6)
[2023-01-31 11:14] LABS: ALT 42 U/L (4-49); AST 34 U/L (17-59); African American GFR (CKD) >90 (>60 ml/min/1.73 sqM); Albumin 4.6 g/dL (3.5-5.0); Alkaline Phosphatase 75 U/L (38-126); Anion Gap 11 mmol/L; Blood Urea Nitrogen 12 mg/dL (9-20); Calcium 9.6 mg/dL (8.4-10.2); Carbon Dioxide 23 mmol/L (22-30); Chloride 103 mmol/L (98-107); Glucose 114 mg/dL (74-99); Lipase 55 U/L (23-300); Magnesium 2.2 mg/dL (1.6-2.3); Non-African American GFR(CKD) >90 (>60 ml/min/1.73 sqM); Potassium 4.2 mmol/L (3.5-5.1); Sodium 137 mmol/L (137-145); Total Bilirubin 1.2 mg/dL (0.2-1.3); Total Protein 7.8 g/dL (6.3-8.2)
--- NOTE | 2023-01-31 13:09 | CT ---
EXAMINATION TYPE: CT abdomen w con CT DLP: 3459 mGycm, Automated exposure control for dose reduction was used. DATE OF EXAM: 01/31/2023 12:36 PM COMPARISON: None CLINICAL INDICATION:Male, 32 years old with history of nausea; Nausea TECHNIQUE: Standard CT of the abdomen following the administration of 100 cc of Isovue 300 IV contr ast material and oral contrast. Coronal and sagittal reformats were performed. FINDINGS: LOWER CHEST: Unremarkable ABDOMEN LIVER: Diffusely hypoattenuating parenchyma. GALLBLADDER AND BILE DUCTS: Unremarkable. PANCREAS: Unremarkable. SPLEEN: Unremarkable. ADRENAL GLANDS: Unremarkable. KIDNEYS AND URETERS: No evidence of hydronephrosis or renal calculus. The kidneys enhance symmetrical ly. Bilateral extrarenal pelvises. Contrast is demonstrated within both collecting systems on the del ayed phase. STOMACH AND BOWEL: Stomach and duodenum are unremarkable. No focal bowel wall thickening or surroundi ng inflammatory changes. Enteric contrast reaches the distal small bowel. The appendix is within norm al limits. No evidence of bowel obstruction. PERITONEUM: No evidence of pneumoperitoneum or free fluid. VASCULATURE: No evidence of aortic aneurysm. MUSCULOSKELETAL: No acute osseous abnormalities. Dextroscoliotic curvature of the thoracic spine with associated pedicular screws and rods. LYMPH NODES: No gross evidence for lymphadenopathy. SOFT TISSUE/ABDOMINAL WALL: Small fat filled umbilical hernia. IMPRESSION: 1. No acute abdominal process. 2. Hepatic steatosis.
[2023-01-31] MEDS ORDERED: ONDANSETRON 4 MG/2 ML VIAL IVP PRN (13:31)
[2023-01-31] MEDS ORDERED: NALOXONE 0.4 MG/ML 1 ML VIAL IV PRN (13:31)
[2023-01-31] MEDS ORDERED: SODIUM CHLORIDE 0.9% 1,000 ML IV SCH (13:45)
--- NOTE | 2023-01-31 15:12 | P.GSHP ---
History of Present Illness H&P Date: 01/31/23 Chief Complaint: Abdominal pain, nausea This is a 32-year-old male who's had complaints of epigastric abdominal pain and nausea for several months. Patient recent HIDA scan which showed diminished ejection fraction consistent with chronic cholecystitis. Patient was scheduled for outpatient laparoscopically stenting. However the patient notes severe nausea and isn't been unable to any food or liquid down for the last 48 hours. Patient was instructed to come to the emergency. Past Medical History Past Medical History: GERD/Reflux, Hypertension, Sleep Apnea/CPAP/BIPAP History of Any Multi-Drug Resistant Organisms: None Reported Additional Past Surgical History / Comment(s): spinal surgery to correct scoliosis 2002, EGD Past Anesthesia/Blood Transfusion Reactions: No Reported Reaction Past Psychological History: No Psychological Hx Reported Smoking Status: Current every day smoker, Vaper Past Alcohol Use History: None Reported Past Drug Use History: None Reported Medications and Allergies Home Medications Medication Instructions Recorded Confirmed Type Calcium Carbonate [Tums] 1,000 mg PO TID PRN 10/15/22 01/31/23 History Meclizine [Antivert] 12.5 mg PO DAILY 12/07/22 01/31/23 History lisinopriL [Zestril] 20 mg PO DAILY 12/07/22 01/31/23 History Allergies Allergy/AdvReac Type Severity Reaction Status Date / Time No Known Allergies Allergy Verified 01/31/23 11:02 Surgical - Exam Vital Signs Temp Pulse Resp BP Pulse Ox 98.6 F 87 18 166/91 97 01/31/23 10:18 01/31/23 10:18 01/31/23 10:18 01/31/23 10:18 01/31/23 10:18 - General well developed, well nourished, no distress - Eyes PERRL - ENT normal pinna - Neck no masses - Respiratory normal expansion - Cardiovascular Rhythm: regular - Abdomen Abdomen: soft, non tender Results - Labs 01/31/23 10:35 01/31/23 10:35 Abnormal Lab Results - Last 24 Hours (Table) 01/31/23 01/31/23 Range/Units 10:35 10:35 WBC 10.7 H (3.8-10.6) k/uL Neutrophils # 8.8 H (1.3-7.7) k/uL Creatinine 0.65 L (0.66-1.25) mg/dL Glucose 114 H (74-99) mg/dL Diabetes panel 01/31/23 Range/Units 10:35 Sodium 137 (137-145) mmol/L Potassium 4.2 (3.5-5.1) mmol/L Chloride 103 (98-107) mmol/L Carbon Dioxide 23 (22-30) mmol/L BUN 12 (9-20) mg/dL Creatinine 0.65 L (0.66-1.25) mg/dL Glucose 114 H (74-99) mg/dL Calcium 9.6 (8.4-10.2) mg/dL AST 34 (17-59) U/L ALT 42 (4-49) U/L Alkaline Phosphatase 75 (38-126) U/L Total Protein 7.8 (6.3-8.2) g/dL Albumin 4.6 (3.5-5.0) g/dL Calcium panel 01/31/23 Range/Units 10:35 Calcium 9.6 (8.4-10.2) mg/dL Albumin 4.6 (3.5-5.0) g/dL Pituitary panel 01/31/23 Range/Units 10:35 Sodium 137 (137-145) mmol/L Potassium 4.2 (3.5-5.1) mmol/L Chloride 103 (98-107) mmol/L Carbon Dioxide 23 (22-30) mmol/L BUN 12 (9-20) mg/dL Creatinine 0.65 L (0.66-1.25) mg/dL Glucose 114 H (74-99) mg/dL Calcium 9.6 (8.4-10.2) mg/dL Adrenal panel 01/31/23 Range/Units 10:35 Sodium 137 (137-145) mmol/L Potassium 4.2 (3.5-5.1) mmol/L Chloride 103 (98-107) mmol/L Carbon Dioxide 23 (22-30) mmol/L BUN 12 (9-20) mg/dL Creatinine 0.65 L (0.66-1.25) mg/dL Glucose 114 H (74-99) mg/dL Calcium 9.6 (8.4-10.2) mg/dL Total Bilirubin 1.2 (0.2-1.3) mg/dL AST 34 (17-59) U/L ALT 42 (4-49) U/L Alkaline Phosphatase 75 (38-126) U/L Total Protein 7.8 (6.3-8.2) g/dL Albumin 4.6 (3.5-5.0) g/dL - Imaging CT scan - abdomen: report reviewed (Within normal limits, hepatomegaly) Assessment and Plan Assessment: Abdominal pain, nausea most likely related to chronic cholecystitis. Patient will undergo laparoscopic cholecystectomy in the a.m.
[2023-01-31] MEDS ORDERED: ACETAMINOPHEN TAB 325 MG TAB PO STA (18:19)
[2023-02-01] MEDS ORDERED: DEXAMETHASONE SOD PHOSPHATE 4 MG/ML 1 ML VIAL IV ONE (05:52)
[2023-02-01] MEDS ORDERED: LACTATED RINGERS 1,000 ML IV SCH (05:52)
[2023-02-01] MEDS ORDERED: LIDOCAINE 1% (10MG/ML) FOR IV START INTRADERMA PRN (05:52)
[2023-02-01] MEDS ORDERED: ACETAMINOPHEN TAB 500 MG TAB ONE (06:42)
[2023-02-01] MEDS ORDERED: SCOPOLAMINE 1 MG/72 HR PATCH TRANSDERM ONE (06:56)
[2023-02-01] MEDS ORDERED: HYDROmorphone 0.5 MG/0.5 ML SYRINGE IVP PRN ×2 (07:00→08:32)
[2023-02-01] MEDS ORDERED: METOCLOPRAMIDE 5 MG/ML 2 ML VIAL IVP PRN (07:00)
[2023-02-01] MEDS ORDERED: HEPARIN SODIUM,PORCINE 5,000 UNIT/ML 1 ML VIAL SQ ONE (07:28)
[2023-02-01] MEDS ORDERED: MIDAZOLAM 2 MG/2 ML VIAL ONE (07:30)
[2023-02-01] MEDS ORDERED: GLYCOPYRROLATE 0.2 MG/ML 2 ML VIAL ONE (07:30)
[2023-02-01] MEDS ORDERED: ROCURONIUM 10 MG/ML (5 ML VIAL) IV ONE (07:30)
[2023-02-01] MEDS ORDERED: PROPOFOL 10 MG/ML 20 ML VIAL IV ONE (07:30)
[2023-02-01] MEDS ORDERED: KETOROLAC 15 MG/ML 1 ML VIAL ONE (07:30)
[2023-02-01] MEDS ORDERED: KETAMINE 10 MG/ML 20 ML VIAL ONE (07:30)
[2023-02-01] MEDS ORDERED: NEOSTIGMINE 1 MG/ML 10 ML VIAL ONE (07:30)
[2023-02-01] MEDS ORDERED: fentaNYL (PF) 50 MCG/ML 2 ML AMP ONE (07:30)
[2023-02-01] MEDS ORDERED: SUCCINYLCHOLINE CHLORIDE 200 MG/10 ML VIAL IV ONE (07:30)
[2023-02-01] MEDS ORDERED: BUPIVACAINE (PF) 0.25% 30 ML VIAL SQ ONE ×2 (07:31→07:51)
[2023-02-01] MEDS ORDERED: SODIUM CHLORIDE 0.9% 50 ML with ceFAZolin 2,000 MG IV ONE ×2 (07:53)
[2023-02-01] MEDS ORDERED: ACETAMINOPHEN TAB 325 MG TAB PO PRN (08:32)
[2023-02-01] MEDS ORDERED: LACTATED RINGERS 1,000 ML IV ONE (08:32)
[2023-02-01] MEDS ORDERED: NALOXONE 0.4 MG/ML 1 ML VIAL IV PRN (08:32)
--- NOTE | 2023-02-01 08:32 | P.OP ---
Date of Procedure: 02/01/23 Preoperative Diagnosis: Chronic cholecystitis Postoperative Diagnosis: Chronic cholecystitis Procedure(s) Performed: Laparoscopic cholecystectomy Anesthesia: LACHO Surgeon: Daniel Tran Estimated Blood Loss (ml): 5 Pathology: other (Gallbladder) Condition: stable Disposition: PACU Description of Procedure: The patient was placed on the operating table. The patient received a general endotracheal tube anesthesia. The patients abdomen was prepped and draped in the usual sterile fashion. Through an infraumbilical stab incision, the fascia of the anterior abdominal wall was grasped with a pair of Kochers and then the Veress needle was placed in the peritoneal cavity. Position of the Veress needle was confirmed with positive drop test. The abdomen was then insufflated. After adequate insufflation, the 10 mm trocar was placed in the peritoneal cavity. Following this the laparoscope was placed in the peritoneal cavity. The patient was placed in the head-up, right side up position and then a 5 mm trocar was placed in the right lateral and right subcostal position under direct visualization. A 8 mm trocar was placed in the epigastric position. The gallbladder was grasped in the fundus and infundibulum. Traction on the gallbladder was placed in the lateral and the cephalad positions. The triangle of Calot was visualized.. The cystic duct was bluntly dissected until the union of the cystic duct and common bile duct was seen. A critical view of safety was achieved. The cystic duct was then divided and sealed with the Harmonic scissors. A PDS Endoloop was then placed throughout the cystic duct stump. The cystic artery divided and sealed with the Harmonic scissors. The gallbladder was then removed from the liver bed using Harmonic scissors. The gallbladder was then extracted through the epigastric port site. Operative field was checked for any bleeding spots and Harmonic scissors was used to coagulate the liver bed. The abdomen was irrigated. The trocars were removed. The skin was closed using interrupted 3-0 Vicryl suture. Dermabond dressing were applied. The patient tolerated the procedure well.
[2023-02-01] MEDS: ENOXAPARIN 40 MG/0.4 ML SYRINGE SQ SCH (09:30)
[2023-02-01] MEDS: KETOROLAC 15 MG/ML 1 ML VIAL IVP SCH ×3 (11:35→23:37)
--- NOTE | 2023-02-01 13:22 | P.PN ---
Subjective Progress Note Date: 02/01/23 CHIEF COMPLAINT: Nausea HISTORY OF PRESENT ILLNESS: Postop day #0 status post laparoscopic cholecystectomy. Patient seen this morning after surgery. He is tolerating popsicles. Pain control. Denies any nausea. Afebrile. PHYSICAL EXAM: VITAL SIGNS: Reviewed. GENERAL: Well-developed in no acute distress. ABDOMEN: Soft. Nondistended. NEUROLOGIC: Alert and oriented. Cranial nerves II through XII grossly intact. ASSESSMENT: 1. Chronic cholecystitis status post laparoscopic cholecystectomy PLAN: -Continue full liquid diet -Continue pain management -Encourage patient to ambulate -Continue supportive care -DVT prophylaxis Lovenox Physician Deck Engine Operator note has been reviewed by physician. Signing provider agrees with the documented findings, assessment, and plan of care. Objective - Vital Signs Vital signs: Vital Signs Temp 98.6 F 02/01/23 12:10 Pulse 69 02/01/23 12:10 Resp 16 02/01/23 12:10 BP 101/61 02/01/23 12:10 Pulse Ox 98 02/01/23 12:10 FiO2 Intake & Output 01/31/23 02/01/23 02/01/23 18:59 06:59 18:59 Intake Total 100 800 Output Total 5 Balance 100 795 Weight 136.078 kg 136.078 kg Intake: IV 100 800 Oral 0 Output: Estimated Blood Loss 5 Other: # Voids 2 - Labs CBC & Chem 7: 01/31/23 10:35 01/31/23 10:35
[2023-02-01] MEDS: ONDANSETRON 4 MG/2 ML VIAL IVP PRN ×2 (14:29→23:32)
--- NOTE | 2023-02-01 15:03 | P.CONS ---
History of Present Illness - Reason for Consult Consult date: 02/01/23 Medical management, postoperative cholecystectomy - History of Present Illness This is a 32-year-old male who was admitted under surgical services underwent laparoscopic cholecystectomy. Patient follows with Dr. Oliva's office and was recently over the last few months started on hypertensive medications although patient continued to have episodes of dizziness with lightheadedness and unsure if he was tolerating. Postoperatively patient is normotensive with a blood pressure of 101/61 recommend holding lisinopril and instructed the patient along with mother to monitor blood pressure and keep a diary of readings for the next week and follow-up with primary care provider outpatient. Patient reports abdominal discomfort otherwise no significant pain. Patient is passing gas with no bowel movement as of yet. Patient is urinating and denies any burning or pain with frequency. WBC mildly elevated at 10.7 although patient is afebrile with no reports of shortness of breath, likely reactive. Other labs reviewed and within normal limits. Review Of Systems: Constitutional: No fever, no chills, no night sweats. No weight change. No weakness, fatigue or lethargy. No daytime sleepiness. EENT: No headache. No blurred vision or double vision, no loss of vision. No loss of Hearing, no ringing in the ears, no dizziness. No nasal drainage or congestion. No epistaxis. No sore throat. Lungs: No shortness of breath, cough, no sputum production. No wheezing. Cardiovascular: No chest pain, no lower extremity edema. No palpitations. No paroxysmal nocturnal dyspnea. No orthopnea. No lightheadedness or dizziness. No syncopal episodes. Abdominal: Reports abdominal pain. No nausea, reports vomiting after excessive belching. No diarrhea. No constipation. No bloody or tarry stools.. No loss of appetite. Reports passing gas Genitourinary: No dysuria, increased frequency, urgency. No urinary retention. Musculoskeletal: No myalgias. No muscle weakness, no gait dysfunction, no frequent falls. No back pain. No neck pain. Integumentary: No wounds, no lesions. No rash or pruritus. No unusual bruising. No change in hair or nails. Neurologic: No aphasia. No facial droop. No change in mentation. No head injury. No headache. No paralysis. No paresthesia. Psychiatric: No depression. No anxiety. No mood swings. Endocrine: No abnormal blood sugars. No weight change. No excessive sweating or thirst. No cold intolerance. PHYSICAL EXAMINATION: GENERAL: The patient is alert and oriented x4, Well developed, well nourished. Morbidly obese HEENT: Pupils are round and equally reacting to light. EOMI. no scleral icterus. No conjunctival pallor. Normocephalic, atraumatic. No pharyngeal erythema. No thyromegaly. CARDIOVASCULAR: S1 and S2 muffled PULMONARY: diminished breath sounds bilaterally with no wheezing or rhonchi noted. ABDOMEN: soft. tender on exam. obese. non-distended, normoactive bowel sounds. No palpable organomegaly. Surgical sites are glued and dry and intact MUSCULOSKELETAL: No joint swelling or deformity. EXTREMITIES: No cyanosis, clubbing, or pedal edema. NEUROLOGICAL: Gross neurological examination did not reveal any focal deficits. SKIN: No rashes. Assessment: Chronic cholecystitis, status post laparoscopic cholecystectomy, postop day 1 Leukocytosis, mild, likely reactive secondary to above, no signs of infection Morbid obesity with a BMI of 43.0 Elevated blood pressure, recently started outpatient on lisinopril by primary office although is normotensive would recommend holding blood pressure medications to monitor for postoperative hypotension Continued ongoing nicotine dependence/vaper History of sleep apnea GERD GI prophylaxis DVT prophylaxis Full code Plan: Recommend to continue with current medications and management per general surgery services. Patient is status post laparoscopic appendectomy this morning doing relatively well Patient reports is passing gas with no bowel movement. Patient is having excessive amounts of belching recommend IV Protonix and will continue with nausea medications as needed Recommend continue with IV hydration and will follow-up on repeat labs White blood count is 10.7 today with no active infection noted recommend incentive spirometer use at least 10 times every hour while awake, frequent walking and increased activity as tolerated Patient currently maintained on clear liquids and slowly being advanced to full liquids for surgery Patient was recently started on lisinopril outpatient by primary care physician's office although has been reporting some dizziness and lighthead edness and mother reports has been checking his blood pressure and has been normal, recommend holding this blood pressure medication for now especially to monitor for postoperative hypotension and patient and family were instructed to continue monitoring blood pressure readings and keep a diary of all of them in the outpatient setting and follow-up with primary care provider in one week. We will continue to follow with general surgery during hospitalization. Thank you kindly for this consultation. The impression and plan of care has been dictated by Roya Navas, nurse practitioner as directed. Dr. Ulices MD I have performed a history and examination and MDM of this patient, discussed the same with the dictator, and agree with the dictator's assessment and plan as written ,documented as a scribe. Based on total visit time, I have performed more than 50% of the visit. Any additional findings or plans will be noted. Past Medical History Past Medical History: GERD/Reflux, Hypertension, Sleep Apnea/CPAP/BIPAP History of Any Multi-Drug Resistant Organisms: None Reported Additional Past Surgical History / Comment(s): spinal surgery to correct scoliosis 2002, EGD Past Anesthesia/Blood Transfusion Reactions: No Reported Reaction Past Psychological History: No Psychological Hx Reported Additional Psychological History / Comment(s): . Smoking Status: Current every day smoker, Vaper Past Alcohol Use History: None Reported Past Drug Use History: None Reported Medications and Allergies Home Medications Medication Instructions Recorded Confirmed Type Calcium Carbonate [Tums] 1,000 mg PO TID PRN 10/15/22 01/31/23 History Meclizine [Antivert] 12.5 mg PO DAILY 12/07/22 01/31/23 History Acetaminophen Tab [Tylenol Tab] 650 mg PO Q4H PRN #30 tablet 02/01/23 Rx Ibuprofen [Motrin] 600 mg PO Q8HR PRN #30 tab 02/01/23 Rx oxyCODONE HCL [OxyIR] 5 mg PO Q6H PRN 3 Days #10 tab 02/01/23 Rx Allergies Allergy/AdvReac Type Severity Reaction Status Date / Time No Known Allergies Allergy Verified 01/31/23 11:02 Physical Exam Vitals: Vital Signs Temp Pulse Pulse Pulse Resp BP BP 02/01/23 08:56 63 16 02/01/23 08:40 82 16 02/01/23 08:26 97 F L 87 16 02/01/23 06:45 97.7 F 104 H 18 132/67 02/01/23 01:05 98.6 F 64 18 113/71 01/31/23 19:55 98.6 F 65 18 132/68 01/31/23 18:05 98.1 F 74 16 130/72 01/31/23 16:54 82 18 134/76 01/31/23 14:06 82 18 125/83 01/31/23 10:18 98.6 F 87 18 166/91 BP Pulse Ox 02/01/23 08:56 117/55 98 02/01/23 08:40 121/56 98 02/01/23 08:26 113/56 98 02/01/23 06:45 98 02/01/23 01:05 98 01/31/23 19:55 98 01/31/23 18:05 99 01/31/23 16:54 100 01/31/23 14:06 100 01/31/23 10:18 97 Intake and Output 01/31/23 02/01/23 02/01/23 22:59 06:59 14:59 Intake Total 100 800 Output Total 5 Balance 100 795 Intake: IV 100 800 Oral 0 Output: Estimated Blood Loss 5 Other: # Voids 1 2 Weight 136.078 kg Results CBC & Chem 7: 01/31/23 10:35 01/31/23 10:35 Labs: Abnormal Lab Results - Last 24 Hours (Table) 01/31/23 01/31/23 Range/Units 10:35 10:35 WBC 10.7 H (3.8-10.6) k/uL Neutrophils # 8.8 H (1.3-7.7) k/uL Creatinine 0.65 L (0.66-1.25) mg/dL Glucose 114 H (74-99) mg/dL
[2023-02-01] MEDS: PANTOPRAZOLE 40 MG/10 ML VIAL IVP SCH ×2 (15:25→23:32)
[2023-02-01] MEDS: SIMETHICONE 40 MG/0.6 ML DROPS 2,000 MG/30 ML BOTTLE PO SCH ×2 (18:16→21:00)
[2023-02-02] MEDS ORDERED: LORazepam 2 MG/ML INJ IV PRN (00:43)
[2023-02-02 07:26] VITALS: RESP 18
[2023-02-02] MEDS: KETOROLAC 15 MG/ML 1 ML VIAL IVP SCH ×2 (08:06→12:46)
[2023-02-02] MEDS: ENOXAPARIN 40 MG/0.4 ML SYRINGE SQ SCH (08:12)
[2023-02-02] MEDS: PANTOPRAZOLE 40 MG/10 ML VIAL IVP SCH (08:12)
[2023-02-02] MEDS: SIMETHICONE 40 MG/0.6 ML DROPS 2,000 MG/30 ML BOTTLE PO SCH (08:15)
[2023-02-02 09:20] LABS: Basophils # (A) 0.02 X 10*3/uL (0.00-0.10); Basophils % (A) 0.2 %; Eosinophils # (A) 0.06 X 10*3/uL (0.04-0.35); Eosinophils % (A) 0.5 %; HCT 41.4 % (39.6-50.0); HGB 13.3 d/dL (13.0-17.0); Lymphocytes # (A) 3.27 X 10*3/uL (0.90-5.00); Lymphocytes % (A) 27.9 %; MCH 27.7 pg (27.0-32.0); MCHC 32.1 d/dL (32.0-37.0); MCV 86.1 FL (80.0-97.0); Mean Platelet Volume 10.1 FL (9.5-12.2); Monocytes # (A) 0.82 X 10*3/uL (0.20-1.00); NRBC Per 100 WBC 0 X 10*3/uL (0.00-0.01); Neutrophils # (A) 7.52 X 10*3/uL (1.80-7.70); Neutrophils % (A) 64.1 %; Platelet Count 281 X 10*3/uL (140-440); RBC 4.81 X 10*6/uL (4.40-5.60); RDW 13.7 % (11.5-14.5); WBC 11.72 X 10*3/uL (4.50-10.00)
[2023-02-02 09:45] LABS: Calcium 8.9 mg/dL (8.7-10.3); Carbon Dioxide 25.4 mmol/L (21.6-31.8); Chloride 102 mmol/L (96-109); Glucose 97 mg/dL (70-110); Magnesium 2.3 mg/dL (1.5-2.4); Potassium 4.2 mmol/L (3.5-5.5); Sodium 138 mmol/L (135-145)
[2023-02-02 11:34] VITALS: BP 112/69; PULSE 72; TEMP 98.8
[2023-02-02 12:50] VITALS: BMI 43.0
--- NOTE | 2023-02-02 13:32 | P.DS ---
Providers Date of admission: 01/31/23 13:31 Expected date of discharge: 02/02/23 Attending physician: Daniel Tran Consults: 02/01/23 07:35 Consult Physician Routine Consulting Provider: Lonnie Oliva Consult Reason/Comments: Medical management Do you want consulting provider notified?: Yes Primary care physician: Ariana Durbin [facility] Course: Discharge diagnosis 1. Chronic cholecystitis status post laparoscopic cholecystectomy Hospital course This is a 32-year-old male who presented with epigastric abdominal pain and nausea for several months. HIDA scan showed diminished ejection fraction consistent with chronic cholecystitis. Patient is status post laparoscopic cholecystectomy. His pain is controlled. He is tolerating full liquid diet. He is having flatus and bowel movements. He is afebrile. He has been up and ambulating. Patient continues to have belching in which he had prior to admission. Recommend that he follows up with GI service outpatient at a tertiary care facility, such as [facility]. Patient and patient's mother are agreeable to this plan. Recommend the patient stays on a full liquid diet for the next 48-72 hours and then advance diet as tolerated. Patient is stable for discharge. Please refer to chart for any further details. Physician Geographic Information Systems Engineer note has been reviewed by physician. Signing provider agrees with the documented findings, assessment, and plan of care. Patient Condition at Discharge: Stable Plan - Discharge Summary New Discharge Prescriptions: New Ibuprofen [Motrin] 600 mg PO Q8HR PRN #30 tab PRN Reason: Pain Acetaminophen Tab [Tylenol Tab] 650 mg PO Q4H PRN #30 tablet PRN Reason: Pain ALPRAZolam [Xanax] 0.25 mg PO BID #6 tab oxyCODONE HCL [OxyIR] 5 mg PO Q6H PRN 3 Days #10 tab PRN Reason: Pain Continue Calcium Carbonate [Tums] 1,000 mg PO TID PRN PRN Reason: Heartburn Meclizine [Antivert] 12.5 mg PO DAILY Discontinued lisinopriL [Zestril] 20 mg PO DAILY Discharge Medication List Calcium Carbonate [Tums] 1,000 mg PO TID PRN 10/15/22 [History] Meclizine [Antivert] 12.5 mg PO DAILY 12/07/22 [History] Acetaminophen Tab [Tylenol Tab] 650 mg PO Q4H PRN #30 tablet 02/01/23 [Rx] Ibuprofen [Motrin] 600 mg PO Q8HR PRN #30 tab 02/01/23 [Rx] oxyCODONE HCL [OxyIR] 5 mg PO Q6H PRN 3 Days #10 tab 02/01/23 [Rx] ALPRAZolam [Xanax] 0.25 mg PO BID #6 tab 02/02/23 [Rx] Follow up Appointment(s)/Referral(s): Ariana Durbin DO [Primary Care Provider] - 1-2 days Daniel Tran MD [STAFF PHYSICIAN] - 1 Week Activity/Diet/Wound Care/Special Instructions: No driving while taking oxyIR No lifting over 10 pounds Shower daily. No soaking or tub baths for 2 weeks Very light activity until you are reevaluated at your follow up appointment with your surgeon Continue Full liquid diet for the next 48-72 hours and then advance diet as tolerated Recommended follow-up with GI service outpatient Discharge Disposition: HOME SELF-CARE
--- NOTE | 2023-02-04 15:46 | P.PN ---
Subjective Progress Note Date: 02/02/23 - Reason for Consult Consult date: 02/01/23 Medical management, postoperative cholecystectomy - History of Present Illness This is a 32-year-old male who was admitted under surgical services underwent laparoscopic cholecystectomy. Patient follows with Dr. Oliva's office and was recently over the last few months started on hypertensive medications although patient continued to have episodes of dizziness with lightheadedness and unsure if he was tolerating. Postoperatively patient is normotensive with a blood pressure of 101/61 recommend holding lisinopril and instructed the patient along with mother to monitor blood pressure and keep a diary of readings for the next week and follow-up with primary care provider outpatient. Patient reports abdominal discomfort otherwise no significant pain. Patient is passing gas with no bowel movement as of yet. Patient is urinating and denies any burning or pain with frequency. WBC mildly elevated at 10.7 although patient is afebrile with no reports of shortness of breath, likely reactive. Other labs reviewed and within normal limits. 02/02/2023 Patient is seen and evaluated in follow-up today status post cholecystectomy. Patient is belching although patient reports is passing gas and did have a bowel movement. Patient has been up and walking multiple times and encouraged to continue doing so. Patient with some abdominal discomfort at the sites although reports less uncomfortable generally. Patient blood pressure is normalized and would recommend continuing to hold lisinopril and follow-up with primary care in the outpatient setting regarding continuing blood pressure medication. Patient has been instructed to keep a diary of all blood pressure readings and follow-up with primary care provider this week. Patient is being discharged by general surgery status post laparoscopic cholecystectomy and is medically stable for discharge today. Review of systems: Constitutional: No reports of fatigue, fever, or chills Cardiovascular: No reports of chest pain or palpitations Respiratory: No reports of shortness of breath or cough GI: No reports of nausea, vomiting, or diarrhea, reports some abdominal discomfort at the sites : No reports of dysuria or retention Neurovascular: No reports of weakness or numbness All medications have been reviewed PHYSICAL EXAMINATION: GENERAL: The patient is alert and oriented x4, Well developed, well nourished. Morbidly obese HEENT: Pupils are round and equally reacting to light. EOMI. no scleral icterus. No conjunctival pallor. Normocephalic, atraumatic. No pharyngeal erythema. No thyromegaly. CARDIOVASCULAR: S1 and S2 muffled PULMONARY: diminished breath sounds bilaterally with no wheezing or rhonchi n oted. ABDOMEN: soft. Less tender on exam. obese. non-distended, normoactive bowel sounds. No palpable organomegaly. Surgical sites are glued and dry and intact MUSCULOSKELETAL: No joint swelling or deformity. EXTREMITIES: No cyanosis, clubbing, or pedal edema. NEUROLOGICAL: Gross neurological examination did not reveal any focal deficits. SKIN: No rashes. Assessment: Chronic cholecystitis, status post laparoscopic cholecystectomy, postop day 2 Leukocytosis, mild, likely reactive secondary to above, no signs of infection Morbid obesity with a BMI of 43.0 Elevated blood pressure, recently started outpatient on lisinopril by primary office although is normotensive would recommend holding blood pressure medications to monitor for postoperative hypotension Continued ongoing nicotine dependence/vaper History of sleep apnea GERD GI prophylaxis DVT prophylaxis Full code Plan: Patient to continue with current medications and management per general surgery services. Patient is status post laparoscopic appendectomy and is being scheduled for discharge today Patient reports is passing gas and had bowel movement. Diet slowly being advanced per surgery services Patient was recently started on lisinopril outpatient by primary care physician's office although has been reporting some dizziness and lightheadedness and mother reports has been checking his blood pressure and has been normal, recommend holding this blood pressure medication for now especially to monitor for postoperative hypotension and patient and family were instructed to continue monitoring blood pressure readings and keep a diary of all of them in the outpatient setting and follow-up with primary care provider in one week. We will continue to follow with general surgery during hospitalization. Thank you kindly for this consultation. Patient is medically stable for discharge today. The impression and plan of care has been dictated by Roya Navas, nurse practitioner as directed. Dr. Ulices MD I have performed a history and examination and MDM of this patient, discussed the same with the dictator, and agree with the dictator's assessment and plan as written ,documented as a scribe. Based on total visit time, I have performed more than 50% of the visit. Any additional findings or plans will be noted. Objective - Vital Signs Vital signs: Vital Signs Temp 98.8 F 02/02/23 11:12 Pulse 72 02/02/23 11:12 Resp 18 02/02/23 11:12 BP 112/69 02/02/23 11:12 Pulse Ox 98 02/02/23 11:12 FiO2 - Labs CBC & Chem 7: 02/02/23 05:40 02/02/23 05:40
== END 2023-02-02 15:20 | disposition home or self-care (01) ==
LOC: EC 09:57 → 6NMEDSUR 13:31 → 5NMEDONC 17:15
PROVIDERS: ADMIT Surgery; ATTEND Surgery
DX: K81.1 Chronic cholecystitis (principal); D72.829 Elevated white blood cell count, unspecified; K42.9 Umbilical hernia without obstruction or gangrene; K21.9 Gastro-esophageal reflux disease without esophagitis; I10 Essential (primary) hypertension; E66.01 Morbid (severe) obesity due to excess calories; F17.290 Nicotine dependence, other tobacco product, uncomplicated; K76.0 Fatty (change of) liver, not elsewhere classified; Z79.899 Other long term (current) drug therapy; Z68.41 Body mass index [BMI] 40.0-44.9, adult
CPT/HCPCS: 96376 ×2; 96361; 96372 ×2; 96374; 96375 ×2; 99284; 36415; 88304; 80053; 80048; 83690; 83735 ×2; 85025 ×2; 74160; 47562; G0378 ×4; J2250; J0330; J2060; J1644; J1100; J2710; J2405; J0690; J1650 ×2; J3010; J1885; J2704; C9113 ×2; Q9967